=== PATIENT | male | born 1960 | race African-American/Black ===

== ENCOUNTER 2016-09-23 12:26 | Day surgery (SDC) | payer OTHER ==
[~2016-09-23] VITALS: Ht 172.7 cm; Wt 83.0 kg
[~2016-09-23 12:26] MED LIST: CEFAZOLIN 2 GM/50 ML (PMX) 50 ML IVPB SCH; SOD CHLORIDE 0.9% 1,000 ML IV SCH
[2016-09-23 13:11] LABS: ADD SCAN DIFF NO
[2016-09-23 13:13] LABS: BASOPHIL # 0.1 10^3/ul (0.0-0.1); BASOPHILS % 1.1 % (0.0-2.0); EOSINOPHILS # 0.6 10^3/ul (0.0-0.5); EOSINOPHILS % 12.4 % (0.0-7.0); HEMATOCRIT 49.5 % (42.0-52.0); HEMOGLOBIN 16.9 g/dl (14.0-18.0); LYMPHOCYTES # 1.8 10^3/ul (0.8-2.9); LYMPHOCYTES % 38.1 % (15.0-51.0); MEAN CORPUSCULAR HEMOGLOBIN 31.3 pg (29.0-33.0); MEAN CORPUSCULAR HGB CONC 34.1 g/dl (32.0-37.0); MEAN CORPUSCULAR VOLUME 91.7 fl (82.0-101.0); MEAN PLATELET VOLUME 9.5 fl (7.4-10.4); MONOCYTE # 0.5 10^3/ul (0.3-0.9); MONOCYTES % 11.3 % (0.0-11.0); NEUTROPHIL # 1.7 10^3/ul (1.6-7.5); NEUTROPHILS % 36.9 % (39.0-77.0); PLATELET COUNT 266 10^3/UL (140-415); RED CELL DISTRIBUTION WIDTH 13.2 % (11.5-14.5); WHITE BLOOD COUNT 4.7 10^3/ul (4.8-10.8)
[2016-09-23 13:16] VITALS: Ht 172.7 cm; Wt 83.0 kg
[2016-09-23 13:17] VITALS: BP 135/85; PULSE 75; RESP 18
--- NOTE | 2016-09-23 13:25 | RADRPT ---
PROCEDURE: XR Chest. CLINICAL INDICATION: Preoperative. Left ankle mass. TECHNIQUE: Single frontal view. COMPARISON: None. FINDINGS: The lungs are clear. The heart size is normal. There is no pleural effusion. There is no pneumothorax. IMPRESSION: 1. Normal chest radiograph. RPTAT: QQ .Bipin Vasquez MD, MD Date Time Electronically viewed and signed by .Bipin Vasquez MD, MD on 09/23/2016 13:24 .R/
[2016-09-23 13:31] LABS: INR 0.93; PROTIME 12.5 Sec (12.2-14.2)
[2016-09-23 13:36] LABS: CALCIUM 9.6 mg/dl (8.4-10.2); CREATININE 0.71 mg/dl (0.61-1.24)
--- NOTE | 2016-09-25 09:02 | RADRPT ---
Vent Rate: 71 bpm RR Interval: 0 msec MO Interval: 152 msec QRS Duration: 96 msec QT Interval: 396 msec QTC Interval: 430 msec P-R-T [place]: 62 - -35 - 51 degrees Normal sinus rhythm Left axis deviation Abnormal ECG Electronically Signed By: Ulisses Isaacs [id number]
== END 2016-09-23 16:55 | disposition home or self-care (01) ==
LOC: EDSEX 12:26 → SDS 12:26
PROVIDERS: ATTEND Surgery
DX: R22.42 Localized swelling, mass and lump, left lower limb (principal); Z53.20 Procedure and treatment not carried out because of patient's decision for unspecified reasons
CPT/HCPCS: 71010; 80048; 85025; 85610; 85730; 93005